=== PATIENT | male | born 1975 | race Two or more races ===

== ENCOUNTER 2019-07-17 13:10 | Observation (INO) | payer BC, OTHER ==
[~2019-07-17] VITALS: Ht 175.3 cm; Wt 92.1 kg
--- OUTSIDE RECORDS SUMMARY | 2019-07-17 13:15 | XMS REPORT ---
[facility] Address Unknown Phone Unavailable Care Team Providers Care Public Health Staff Nurse Name Role Phone ARABELLA SHANITA Unavailable Unavailable Problems This patient has no known problems. Allergies, Adverse Reactions, Alerts This patient has no known allergies or adverse reactions. Medications This patient has no known medications. Results Test Description Test Time Test Comments Text Results Atomic Results Result Comments MRI SPINE LUMBAR WO [place] [address] Patient Name: MALATHI BROWN MR #: [id number] : 1975 Age/Sex: 42/M Req #: [id number] [facility] Physician: Ordered by: SHANITA BELL MD Report #: [id number] Location: MRI Room/Bed: Procedure: [id number] MRI/MRI SPINE LUMBAR WO Exam Date: 07/14/17 Exam Time: 1624 REPORT STATUS: Signed EXAMINATION: MRI of the lumbar spine without contrast HISTORY: Low back pain radiating mainly left lower extremity pain for the last 2 years with weakness COMPARISON: None. TECHNIQUE: Sagittal T1, T2, STIR; axial T2 and proton density. FINDINGS: It is assumed that there are 5 lumbar vertebrae. Curvature/Alignment: Normal lordosis. Vertebrae: No evidence of recent fracture, infection, or neoplasm. Conus: Normal, terminating at L1 Cauda equina: Unremarkable. Lower thoracic: Unremarkable. Paraspinal soft tissues: Partially visualized T2 hyperintense probable cyst in the upper pole of the right kidney and lower pole of the left kidney, a renal ultrasound is recommended if not previously evaluated and if clinically indicated Degenerative changes: L1-L2: Unremarkable. L2-L3: Unremarkable. L3-L4: Unremarkable. L4- L5: Mild symmetric disc bulge with posterior central annular fissure. No spinal canal or foraminal stenoses. Minimal edema in the interspinous soft tissues with possible bursitis. L5-S1: Unremarkable. IMPRESSION: Mild degenerative changes of the disc at L4-5 without spinal canal or foraminal stenosis. Mild interspinous soft tissues edema at L4-5 as detailed above. Otherwise unremarkable lumbar spine MRI. Signed by: Dr. Elena Ordonez M.D. on 07/15/2017 7:08 AM Dictated By: ELENA ORDONEZ MD 7 Transcribed By: ABBEY on 07/15/17707 COPY TO: SHANITA BELL MD MRI HIP LEFT WO [place] [address] Patient Name: MALATHI BROWN MR #: [id number] : 1975 Age/Sex: 42/M Req #: [id number] [facility] Physician: Ordered by: SHANITA BELL MD Report #: [id number] Location: MRI Room/Bed: Procedure: [id number] MRI/MRI HIP LEFT WO Exam Date: 07/14/17 Exam Time: 1624 REPORT STATUS: Signed TECHNIQUE: Magnetic resonance imaging of the LEFT HIP was performed WITHOUT injected contrast. HISTORY: Radiculopathy COMPARISON: None available. 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 No osteonecrosis or acute fracture. Femoroacetabular Joint: Acetabular labrum: No displaced labral tear. Articular Cartilage: Cartilage thinning without focal defect Muscle and tendons: Mild proximal hamstring tendinosis. Gluteal tendon insertion on the greater trochanter intact. Soft tissues: Otherwise unremarkable. 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 Mild proximal hamstring tendinosis. Signed by: Dr. Jennifer Dumont M.D. on 07/15/2017 8:24 AM Dictated By: JENNIFER DUMONT MD 3 Transcribed By: ABBEY on 07/15/17823 COPY TO: SHANITA BELL MD
--- OUTSIDE RECORDS SUMMARY | 2019-07-17 13:15 | XMS REPORT | Clinical Summary ---
Author Author KATH [facility] Address Unknown Phone Unavailable Care Team Providers Care Immunohematologist Name Role Phone Pcp, No PCP Unavailable Allergies Not on File Medications Not on file Active Problems Not on file Encounters Care Team Description Date Type Specialty Serge Blackmon MD Microscopic hematuria (Primary Dx) 01/17/2019 Outside Orders Central Scheduling after 07/16/2018 Social History Date Tobacco Use Types Packs/Day Years Used Never Assessed Sex Assigned at Date Recorded Not on file Industry Job Start Date Occupation Not on file Not on file Not on file Travel End Travel History Travel Start No recent travel history available. Last Filed Vital Signs Not on file Plan of Treatment Not on file Results Not on fileafter 07/16/2018 Insurance Payer Benefit Subscriber ID Type Phone Address Plan / Group [employer] xxxxxxxxxxx [employer]
[2019-07-17] MEDS ORDERED: SODIUM CHLORIDE 0.9% 1000ML 1,000 ML IV STA (13:30)
[2019-07-17] MEDS ORDERED: ENOXAPARIN SODIUM INJ 100 MG/ML SYR SC SCH (13:45)
[2019-07-17] MEDS ORDERED: MORPHINE SULFATE 2 MG/ML SYR 1ML IV PRN (13:45)
[2019-07-17] MEDS ORDERED: ONDANSETRON HCL INJ 2MG/ML 2ML 2 MG/ML VIAL IV PRN (13:45)
[2019-07-17] MEDS ORDERED: ENOXAPARIN SODIUM INJ 100 MG/ML SYR SC ONE (14:00)
[2019-07-17] MEDS ORDERED: MORPHINE SULFATE 2 MG/ML SYR 1ML IV ONE (14:00)
[2019-07-17] MEDS ORDERED: ASPIRIN 81 MG CHEW TAB PO ONE (14:00)
[2019-07-17] MEDS ORDERED: ONDANSETRON HCL INJ 2MG/ML 2ML 2 MG/ML VIAL IV ONE (14:00)
[2019-07-17] MEDS ORDERED: PANTOPRAZOLE 40 MG 10ML VIAL IV ONE (14:00)
[2019-07-17 14:04] LABS: BASOPHILS % 0.3 % (0.0-1.0); EOSINOPHILS # (AUTO) 0.1 (0.0-0.4); EOSINOPHILS % 1.8 % (0.0-6.0); HEMATOCRIT 44.2 % (38.2-49.6); HEMOGLOBIN 14.9 g/dL (14.0-18.0); LYMPHOCYTES % 39.8 % (18.0-39.1); MEAN CORPUSCULAR HGB CONC 33.7 g/dL (31-35); MEAN CORPUSCULAR VOLUME 82.9 fL (81-99); MONOCYTES # (AUTO) 0.7 (0.2-0.8); MONOCYTES % 9.1 % (4.4-11.3); NEUTROPHILS # (AUTO) 3.7 (2.1-6.9); NEUTROPHILS % 48.7 % (38.7-80.0); PLATELET COUNT 262 x10e3/uL (140-360); RED BLOOD COUNT 5.33 x10e6/uL (4.3-5.7); RED CELL DISTRIBUTION WIDTH 12.3 % (11.7-14.4)
[2019-07-17 14:06] LABS: INR 0.86; PROTHROMBIN TIME 12.2 seconds (11.9-14.5)
[2019-07-17 14:07] LABS: PARTIAL THROMBOPLASTIN TIME 32.7 seconds (23.8-35.5)
[2019-07-17 14:15] LABS: ALANINE AMINOTRANSFERASE 32 IU/L (0-55); ALBUMIN 4.4 g/dL (3.5-5.0); ALBUMIN/GLOBULIN RATIO 1.3 (0.8-2.0); ALKALINE PHOSPHATASE 74 IU/L (40-150); BLOOD UREA NITROGEN 10 mg/dL (7-26); BUN/CREATININE RATIO 12 (6-25); CALCIUM 9.9 mg/dL (8.4-10.2); CARBON DIOXIDE 27 mmol/L (22-29); CHLORIDE 102 mmol/L (98-107); CREATININE, SERUM 0.83 mg/dL (0.72-1.25); EST GLOMERULAR FILTRATION RATE > 60 ML/MIN (60-); GLUCOSE 84 mg/dL (74-118); LIPASE 53 U/L (8-78); MAGNESIUM 2.3 MG/DL (1.3-2.1); SODIUM 140 mmol/L (136-145)
[2019-07-17] MEDS: METOPROLOL TARTRATE 25 MG TAB PO SCH (14:26)
[2019-07-17] MEDS: FAMOTIDINE 20 MG/2 ML VIAL IV SCH (14:33)
[2019-07-17 14:35] LABS: THYROID STIMULATING HORMONE 1.103 uIU/mL (0.350-4.940)
[2019-07-17 14:48] LABS: CREATINE KINASE 141 IU/L (30-200)
--- NOTE | 2019-07-17 14:55 | Diagnostic Imaging Report ---
EXAMINATION: CHEST SINGLE (PORTABLE) INDICATION: Chest pain COMPARISON: None FINDINGS: LINES/TUBES:EKG leads overlie the chest. LUNGS:The lungs are well-inflated. No focal consolidation or pulmonary edema. PLEURA:No pleural effusion or pneumothorax. MEDIASTINUM:The cardiomediastinal silhouette appears normal in size and shape. BONES/SOFT TISSUES:No acute osseous injury. ABDOMEN:No free air under the diaphragm. IMPRESSION: No focal pneumonia or pulmonary edema. Signed by: Vahid Hill MD on 07/17/2019 2:52 PM
--- OUTSIDE RECORDS SUMMARY | 2019-07-17 15:19 | XMS REPORT | Clinical Summary ---
Author Author [facility]ATH [facility] Address Unknown Phone Unavailable Care Team Providers Care Reeling Machine Operator Name Role Phone Pcp, No PCP Unavailable [...]
[2019-07-17 15:23] LABS: BILIRUBIN,URINE NEGATIVE (NEGATIVE); CLARITY,URINE CLEAR (CLEAR); COLOR,URINE YELLOW (YELLOW); KETONES,URINE NEGATIVE (NEGATIVE); LEUKOCYTE ESTERASE ,URINE NEGATIVE (NEGATIVE); NITRITE,URINE NEGATIVE (NEGATIVE); PROTEIN,URINE DIPSTICK NEGATIVE (NEGATIVE); URINE UROBILINOGEN 0.2 mg/dL (0.2 - 1)
[2019-07-17 15:36] LABS: BACTERIA,URINE FEW /HPF; RBC,URINE 0-5 /HPF (0-5)
--- NOTE | 2019-07-17 18:40 | NUR ---
PT CONTINUES TO STATE THAT HE DOES NOT WANT TO BE MEDICATED FOR PAIN, STATES THAT RECTIFICATION PRINTER ROUNDED AND UPDATED HIM ON PLAN OF CARE, NO NEEDS VOICED AT THIS TIME, WILL CONTINUE TO MONITOR.
[2019-07-17] MEDS ORDERED: SIMVASTATIN 20 MG TAB PO SCH (21:00)
--- NOTE | 2019-07-17 22:10 | NUR ---
Received report from WIRE WEAVING LOOM SETTER on patient admitted for chest pain and dyspnea. The patient is A/Ox4 with no chest pain. The patient provided the medical history. RN instructed the patient to call if feeling chest pain. Verbalized understanding. The patient reported he is a vegan and does not eat meat. Bed height low, side rails up x2, call light within reach, and wheels lock.
[2019-07-17 22:17] VITALS: BP 143/8
[2019-07-17 22:22] VITALS: BP 143/88
--- NOTE | 2019-07-17 22:58 | NUR ---
Cardiology Consult Dictation# [id number]
[2019-07-17 23:42] LABS: CREATINE KINASE MB 1.2 ng/mL (0-5.0)
[2019-07-18] MEDS: ENOXAPARIN SODIUM INJ 100 MG/ML SYR SC SCH ×2 (01:24→15:31)
[2019-07-18] MEDS: FAMOTIDINE 20 MG/2 ML VIAL IV SCH ×2 (01:24→15:26)
[2019-07-18] MEDS: METOPROLOL TARTRATE 25 MG TAB PO SCH ×2 (01:24→15:31)
[2019-07-18 04:00] VITALS: BP 163/87
--- NOTE | 2019-07-18 05:27 | Consultation ---
DATE OF CONSULTATION: 07/17/2019 Cardiology Consultation REQUESTING PHYSICIAN: Dr. Tara Holt. REASON FOR CONSULTATION: Chest pain. HISTORY OF PRESENT ILLNESS: This is a 44-year-old male without significant past medical history, who presents with complaints of chest pain. The patient reports he was walking around his hotel grand opening when he felt sudden shortness of breath and chest pressure. He described the pain as 5/10 in severity associated with diaphoresis. There was no nausea or radiation. Due to his symptoms, he presented to his PCP for further evaluation and was instructed to present to the ER for further care and the patient denies any edema, orthopnea, or PND. He denies any recent travel. PAST MEDICAL HISTORY: Denies. PAST SURGICAL HISTORY: Denies. ALLERGIES: PLEASE SEE EMR. MEDICATIONS: Please see medication list. SOCIAL HISTORY: Denies tobacco or illicit drugs. Drinks alcohol occasionally. FAMILY HISTORY: Pertinent for father with blockage, but he is unclear of the details. PHYSICAL EXAMINATION: VITAL SIGNS: Temperature 97.1 degrees, pulse 55, respiratory rate 18, blood pressure 160/95, and oxygen saturation 100%. GENERAL: A well-developed, well-nourished man, in no acute distress. Awake and alert. HEENT: Normocephalic, atraumatic. Pupils equal. No scleral icterus. NECK: Supple. No thyromegaly or cervical lymphadenopathy. No carotid bruits. LUNGS: Clear to auscultation bilaterally. No wheezes or crackles. CARDIOVASCULAR: Normal rate, regular rhythm. No murmur. Normal S1 and S2. ABDOMEN: Soft and nontender. EXTREMITIES: No edema. NEUROLOGIC: Nonfocal exam. LABORATORY DATA: WBC 7.61, hemoglobin 14.9, hematocrit 44.2, and platelets 262. Sodium 140, potassium 4, chloride 102, CO2 of 27, BUN 10, creatinine 0.83. Troponin less than 0.001. BNP less than 10. IMAGING: EKG, sinus bradycardia, otherwise normal ECG. Chest x-ray, no focal pneumonia or pulmonary edema. IMPRESSION: 1. Chest pain. 2. Hypertension. RECOMMENDATIONS: Trend cardiac enzymes to rule out myocardial infarction. Blood pressure is better controlled with metoprolol. We will continue. Agree with aspirin. Fasting lipid panel in the morning. Continue simvastatin in the interim. Plan for nuclear stress test in the morning to evaluate for ischemia. Further recommendations pending test results. Thank you for this consult. We will continue to follow. MD YANCI Monroe/NANCY /[id number]
[2019-07-18 05:49] LABS: BASOPHILS % 0.5 % (0.0-1.0); EOSINOPHILS # (AUTO) 0.2 (0.0-0.4); EOSINOPHILS % 2.6 % (0.0-6.0); HEMATOCRIT 45.3 % (38.2-49.6); HEMOGLOBIN 15.2 g/dL (14.0-18.0); LYMPHOCYTES # (AUTO) 3.5 (1.0-3.2); LYMPHOCYTES % 45.3 % (18.0-39.1); MEAN CORPUSCULAR HEMOGLOBIN 28.1 pg (28-32); MEAN CORPUSCULAR HGB CONC 33.6 g/dL (31-35); MEAN CORPUSCULAR VOLUME 83.7 fL (81-99); MONOCYTES # (AUTO) 0.8 (0.2-0.8); MONOCYTES % 10.3 % (4.4-11.3); NEUTROPHILS # (AUTO) 3.1 (2.1-6.9); NEUTROPHILS % 40.8 % (38.7-80.0); PLATELET COUNT 242 x10e3/uL (140-360); RED BLOOD COUNT 5.41 x10e6/uL (4.3-5.7); RED CELL DISTRIBUTION WIDTH 12.5 % (11.7-14.4)
[2019-07-18 06:18] LABS: CREATINE KINASE 90 IU/L (30-200)
[2019-07-18 06:56] LABS: ALANINE AMINOTRANSFERASE 31 IU/L (0-55); ALBUMIN 3.6 g/dL (3.5-5.0); ALBUMIN/GLOBULIN RATIO 1.1 (0.8-2.0); ALKALINE PHOSPHATASE 72 IU/L (40-150); ANION GAP 12.5 mmol/L (8-16); BLOOD UREA NITROGEN 9 mg/dL (7-26); BUN/CREATININE RATIO 10 (6-25); CALCIUM 9.3 mg/dL (8.4-10.2); CARBON DIOXIDE 27 mmol/L (22-29); CHLORIDE 105 mmol/L (98-107); CHOL/HDL RATIO 4.9 (3.9-4.7); CHOLESTEROL 220 MD/DL (0-199); CREATININE, SERUM 0.91 mg/dL (0.72-1.25); EST GLOMERULAR FILTRATION RATE > 60 ML/MIN (60-); GLUCOSE 106 mg/dL (74-118); HDL CHOLESTEROL 45 MG/DL (40-60); LDL CHOLESTEROL 144 MG/DL (60-130); MAGNESIUM 2.2 MG/DL (1.3-2.1); PHOSPHORUS 3.3 MG/DL (2.3-4.7); POTASSIUM 4.5 mmol/L (3.5-5.1); SODIUM 140 mmol/L (136-145); TRIGLYCERIDES 157 MG/DL (0-149)
--- NOTE | 2019-07-18 07:10 | NUR ---
Received patient lying in bed, awake, alert, Respiration even and unlabored without SOB. call light in reach.
[2019-07-18 08:25] VITALS: BP 140/93
[2019-07-18 08:50] VITALS: BP 140/93
[2019-07-18] MEDS ORDERED: ASPIRIN 81 MG ENTERIC COATED PO SCH (09:00)
--- NOTE | 2019-07-18 10:51 | NUR ---
Patient went to stress test at this time
--- NOTE | 2019-07-18 11:38 | NUR ---
PT CURRENTLY IN STRESS TEST UNABLE TO PREFORM DPA.
[2019-07-18] MEDS ORDERED: REGADENOSON 0.4 MG/5 ML SYR IV ONE (12:10)
--- NOTE | 2019-07-18 13:50 | NUR ---
Visit made by the Spiritual Care Department Pastoral Visitor, Vi Dudley. Pt out of room and no family at bedside. A card was left at the bedside to indicate a missed visit from a member of the Spiritual Care team and to inform the pt and family of the availability of a Parquet Floor Layer 24 hours a day/7 days a week. A athletic instructor will follow up as able. HANSA ARBOLEDA Parquet Floor Layer Spiritual Care Department O: [phone] Pager: [phone] ([phone] number calling from)
--- NOTE | 2019-07-18 14:54 | NUR ---
Patient returned from from stress test at this time
--- NOTE | 2019-07-18 15:55 | History and Physical ---
CHIEF COMPLAINT: 1. Chest pain. 2. Shortness of breath. 3. Fatigue. HISTORY OF PRESENT ILLNESS: This is a 44-year-old male with a past medical history of mild hyperlipidemia, was in usual state until the morning of admission. He came to my office having chest pain, shortness of breath at rest and exertion. No leg swelling. No abdomen pain. No nausea. No vomiting. No hematochezia. No melena. Pain was off and on. The patient was also having sweating. No cough. No sore throat. No stuffy nose. No runny nose. No backache. No burning urination. ALLERGIES: NO KNOWN DRUG ALLERGY. PAST MEDICAL HISTORY: Mild hyperlipidemia. PAST SURGICAL HISTORY: None. FAMILY HISTORY: Positive for hypertension, diabetes, and coronary artery disease. MEDICATIONS: None. SOCIAL HISTORY: The patient is . HABITS: Denies smoking. Denies alcohol use. Denies illicit drug use. REVIEW OF SYSTEMS: GENERAL: Denies fatigue or weakness. HEENT: No diplopia. No blurry vision. CARDIOPULMONARY: Has some chest pain and shortness of breath. No cough. ALIMENTARY: No nausea. No vomiting. No diarrhea. No constipation. GENITOURINARY: No dysuria. No hematuria. MUSCULOSKELETAL: No joint pain. CENTRAL NERVOUS: No focal weakness. PHYSICAL EXAMINATION: GENERAL: This is a 44-year-old male, who is alert and oriented x3, in no gross distress. VITAL SIGNS: Temperature 96, pulse 55, respiratory rate 18, blood pressure 124/88, and O2 saturation 98% on room air. HEENT: Head is atraumatic and normocephalic. Pupils bilaterally equal and reactive to light. Extraocular muscles are intact. NECK: Supple. No JVD. No carotid bruit. LUNGS: Clear to auscultation and percussion bilaterally. No added sounds. HEART: S1 and S2. Regular rate and rhythm. No S3, S4, or murmur. ABDOMEN: Soft and nontender. No guarding. No rigidity. EXTREMITIES: No edema. Peripheral pulses . HAND INSERTER OPERATOR: Grossly nonfocal. RADIOGRAPHIC DATA: EKG, sinus bradycardia at 56 per minute, nonspecific ST-T changes. Chest x-ray normal. CBC and CMP normal except triglyceride 157, cholesterol 220, and LDL 144. ASSESSMENT: 1. Unstable angina, rule out myocardial infarction. 2. Hyperlipidemia. 3. Mild increased blood pressure. PLAN: Admit the patient to telemetry. Cardiology consult with Dr. Camp. EKG, echo, and nuclear stress test. Aspirin, Zocor, and metoprolol. Further care as per Cardiology explaining the condition and prognosis to the patient and family. MD GABRIELE Perez/NANCY /[id number]
[2019-07-18 16:00] VITALS: BP 168/96
--- NOTE | 2019-07-18 17:04 | NUR ---
Nutrition Screen Note RD Recommendation for Physician: -Continue diet as ordered Plan of Care: RD following, monitoring for tolerance and adequacy Nutrition reason for involvement: RN Consult vegan diet Primary Diagnose(s): Chest pain PMH: mild HLD Ht: 69in Wt: 203lb BMI: 30kg/m2 IBW: 160lb +/- 10% RD Assessment: (07/18) Chart reviewed. Labs and meds reviewed. 44yo M, who was admitted for chest pain. Visited pt in the room. Pt reported eating like normal DISPLAY TRIMMER. No GI complains reported. Pt denied any chewing or swallowing difficulty. Weight has been stable. Also verified with pt regarding his diet preferences. Pt is vegetarian, not vegan notified kitchen. Pt is eager to go home. Current Diet: regular diet Malnutrition Evaluation (07/18) The patient does not meet criteria for a specified degree of malnutrition at this time. Will re-evaluate at follow-up as appropriate. Diet Education Needs Assessment: Diet education not indicated. Nutrition Care Level: low Signed: Amairani Willis, MS, RD, LD
--- NOTE | 2019-07-18 18:08 | NUR ---
Stress test noted to be normal per dr. llanos. Call placed to dr. de leon for discharge orders
--- NOTE | 2019-07-18 18:25 | NUR ---
Removed IV from left AC. pressure dressing applied
--- NOTE | 2019-07-18 18:32 | NUR ---
Patient discharged from facility to home. Patient assisted out via staff. Reviewed all discharge paperwork, follow up appts and no RX's needed. Informed patient to go to dr. de leon's office tomorrow for an appt
--- NOTE | 2019-07-18 21:17 | Myoview Stress Test ---
DATE OF STUDY: 07/17/2019 22:57:00 Stress Test - Treadmill ONLY PROCEDURE: Rest stress single isotope SPECT imaging with exercise stress and gated SPECT imaging. INDICATION: Chest pain. PROCEDURE IN DETAIL: The patient performed treadmill exercise using a Chris protocol, exercising for 10 minutes 28 seconds to stage IV and completing estimated workload of 12.8 metabolic equivalents (METs). The test was terminated due to target heart rate achieved. Next, the resting heart rate was 78 beats per minute at rest and increased to 150 beats per minute during at peak exercise, which was 86% of the maximum predicted heart rate. The resting blood pressure was 136/97 mmHg, increased to 164/108 mmHg, which is a normal response. The patient did not develop any symptoms during the procedure. The resting electrocardiogram demonstrated normal sinus rhythm. There were no ST-segment changes suggestive of myocardial ischemia. Myocardial perfusion imaging was performed at rest following the injection of 11 mCi of tetrofosmin. At peak exercise, the patient was injected with 33 mCi of tetrofosmin. Gated post-stress tomographic imaging was performed. FINDINGS: The overall quality of study is fair. Left ventricle is noted to be normal size on the rest and stress studies. SPECT images demonstrate homogeneous tracer distribution throughout the myocardium. Gated SPECT imaging reveals normal myocardial thickening and wall motion. Left ventricular ejection fraction was calculated to be greater than 70%. IMPRESSION: Myocardial perfusion imaging is normal. Overall left ventricular systolic function was normal without regional wall motion abnormalities. MD YANCI Monroe/MODL /[id number]
--- NOTE | 2019-07-19 01:13 | Progress Note ---
DATE: 07/18/2019 Cardiology Progress Note SUBJECTIVE: The patient denies chest pain or shortness of breath. OBJECTIVE: VITAL SIGNS: Temperature 96.7 degrees, pulse 57, respiratory rate 19, blood pressure 140/93, and oxygen saturation 99% on room air. GENERAL: Awake, alert, in no acute distress. LUNGS: Clear to auscultation bilaterally. No wheezes or crackles. CARDIOVASCULAR: Normal rate, regular rhythm. No murmur. Normal S1, S2. ABDOMEN: Soft and nontender. EXTREMITIES: No edema. CARDIAC MEDICATIONS: Enoxaparin 90 mg subcu q.12 hours, metoprolol tartrate 25 mg p.o. q.12 hours, and simvastatin 20 mg p.o. at bedtime. LABORATORY DATA: WBC 7.66, hemoglobin 15.2, hematocrit 45.3, and platelets 242. Sodium 140, potassium 4.5, chloride 105, CO2 of 27, BUN 9, creatinine 0.91. Cholesterol 228, LDL 144, HDL 45, triglycerides 157. Troponin less than 0.001. TELEMETRY: Normal sinus rhythm. IMPRESSION: 1. Chest pain. 2. Hypertension. RECOMMENDATIONS: The patient is ruled out for myocardial infarction with serial cardiac biomarkers. Nuclear stress test was without evidence of ischemia. The patient's cholesterol is elevated. Given lack of known cardiovascular disease, recommended risk factor modification with diet, exercise, and weight loss. Thank you for this consult. We will continue to follow. Dorcas Cameron MD ABS/CORINAL /[id number]
== END 2019-07-18 18:32 | disposition home or self-care (01) ==
LOC: ER 13:10 → ERHOLD 13:32 → MED/SURG 22:08
PROVIDERS: ADMIT Internal Medicine; ATTEND Internal Medicine
DX: R07.89 Other chest pain (principal); E78.5 Hyperlipidemia, unspecified; R53.83 Other fatigue; R06.02 Shortness of breath; Z82.49 Family history of ischemic heart disease and other diseases of the circulatory system
CPT/HCPCS: 36415; 71045; 78452; 80053; 80061; 81001; 82550; 82553; 82948; 83690; 83735; 83880; 84100; 84443; 84484; 85025; 85610; 85730; 93005; 93017; 93306; 99285; A9502; G0378; J1650; J2270; J2405; J7030